=== PATIENT | male | born 1955 | race Caucasian/White ===

== ENCOUNTER 2023-09-08 03:44 | Emergency (ER) | payer MEDICARE, BC ==
[~2023-09-08] VITALS: Ht 190.5 cm; Wt 131.1 kg
[2023-09-08] MEDS ORDERED: HYDROMORPHONE 1 MG/1 ML DISP.SYRIN ONE (04:51)
[2023-09-08] MEDS ORDERED: ONDANSETRON 4 MG/2 ML VIAL ONE (04:52)
[2023-09-08] MEDS: ONDANSETRON 4 MG/2 ML VIAL IV ONE (04:55)
[2023-09-08] MEDS: CLINDAMYCIN PHOSPHATE IV 600 MG in IV DEXTROSE 5% 100 ML IV ONE (04:55)
[2023-09-08] MEDS: HYDROMORPHONE 1 MG/1 ML DISP.SYRIN IV ONE (04:55)
[2023-09-08] MEDS ORDERED: CLINDAMYCIN 900MG/D5W 100ML IVPB **ER PYXIS ONLY IJ ONE (04:55)
[2023-09-08 04:58] LABS: BASOPHILS % (AUTO) 0.5 % (0.0-2.0); EOSINOPHILS # (AUTO) 0.1 K/uL (0.0-0.7); EOSINOPHILS % (AUTO) 0.8 % (0.0-7.0); HEMATOCRIT 45.2 % (36.7-47.1); HEMOGLOBIN 15.8 g/dL (12.5-16.3); LYMPHOCYTES # (AUTO) 1.4 K/uL (0.8-4.8); LYMPHOCYTES % (AUTO) 14.7 % (20.5-51.5); MEAN CORPUSCULAR HEMOGLOBIN 34.4 uug (23.8-33.4); MEAN CORPUSCULAR HGB CONC 35 g/dL (32.5-36.3); MEAN CORPUSCULAR VOLUME 98.2 fL (73.0-96.2); MONOCYTES # (AUTO) 1.5 K/uL (0.1-1.30); MONOCYTES % (AUTO) 14.8 % (0.0-11.0); NEUTROPHILS # (AUTO) 6.8 K/uL (1.8-8.9); NEUTROPHILS % (AUTO) 69.2 % (38.5-71.5); PLATELET COUNT (AUTO) 224 K/uL (152-348); WHITE BLOOD COUNT (AUTO) 9.9 K/uL (3.6-10.2)
[2023-09-08 05:01] LABS: DIFFERENTIAL COMMENT 1
[2023-09-08 05:23] LABS: ALANINE AMINOTRANSFERASE 40 U/L (16-63); ALBUMIN 3.6 g/dL (3.4-5.0); ALKALINE PHOSPHATASE 55 U/L (50-136); ASPARTATE AMINOTRANSFERASE 17 U/L (15-37); BILIRUBIN,TOTAL 0.6 mg/dL (0.2-1.0); CALCIUM 9.2 mg/dL (8.5-10.1); CARBON DIOXIDE 25 mmol/L (21-32); CHLORIDE 104 mmol/L (98-107); CREATININE 0.6 mg/dL (0.6-1.3); GLUCOSE 132 mg/dL (74-106); POTASSIUM 3.8 mmol/L (3.5-5.1); SODIUM SERUM 140 mmol/L (136-145); TOTAL PROTEIN, SERUM 7.1 g/dL (6.4-8.2); UREA NITROGEN, BLOOD 17 mg/dL (7-18); URIC ACID 1.9 mg/dL (3.5-7.2)
[2023-09-08] MEDS ORDERED: HYDROCODONE/APAP 5-325MG TABLET ONE ×2 (06:04→06:09)
[2023-09-08] MEDS ORDERED: NAPR-1009 PO (06:06)
[2023-09-08] MEDS ORDERED: CLIN-118 PO (06:06)
[2023-09-08] MEDS: HYDROCODONE/APAP 5-325MG TABLET PO ONE (06:13)
[2023-09-08 06:26] VITALS: BP 142/98; O2SAT 95
== END 2023-09-08 06:15 | disposition left against medical advice (07) ==
LOC: ER 03:47
DX: L03.114 Cellulitis of left upper limb (principal); Z98.890 Other specified postprocedural states
CPT/HCPCS: 99284; 96365; 96375; 80053; 84550; 85025; 87040; 36415; 73130; 83605; J3490 ×2; J2405; J1170; A4606; A4663